=== PATIENT | male | born 1955 | race Caucasian/White ===

== ENCOUNTER → 2017-06-10 | Outpatient (CLI) | payer BC, OTHER ==
[~2017-06-10] MED LIST: NORCO 5-325 TA1 EACH PO; SENNA S TABLET1 EACH PO
[2017-06-10 08:35] LABS: CREATININE 1.1 mg/dL (0.7-1.3); POTASSIUM 4.5 mmol/L (3.5-5.1)
== END ==
LOC: CAT 07:59 → EDSTATUS 11:20 → CAT 11:23
PROVIDERS: Internal Medicine
DX: C64.9 Malignant neoplasm of unspecified kidney, except renal pelvis (principal); K76.89 Other specified diseases of liver; Z90.5 Acquired absence of kidney

== ENCOUNTER → 2019-08-24 | Outpatient (CLI) | payer BC, OTHER ==
[2019-08-24 08:11] LABS: CALCIUM 9.1 mg/dL (8.5-10.1); CREATININE 1.3 mg/dL (0.7-1.3); POTASSIUM 4.4 mmol/L (3.5-5.1)
== END ==
LOC: CAT 06:59
PROVIDERS: Internal Medicine
DX: N28.1 Cyst of kidney, acquired (principal); K76.9 Liver disease, unspecified; N40.0 Benign prostatic hyperplasia without lower urinary tract symptoms; Z90.5 Acquired absence of kidney